=== PATIENT | male | born 1945 | race Caucasian/White ===

== ENCOUNTER 2020-06-14 12:23 | Outpatient (CLI) | payer MEDICARE, SELFPAY ==
--- NOTE | 2020-06-14 12:30 | XRR_ITS ---
PROCEDURE INFORMATION: Exam: XR Abdomen, 1 View Exam date and time: 06/14/2020 12:41 PM Age: 74 years old Clinical indication: Condition or disease; Kidney or ureter condition; Calculus (stone) in ureter; Prior surgery; Surgery type: Lung; Additional info: Ureteral stone TECHNIQUE: Imaging protocol: XR of the abdomen. Views: Frontal supine view of the abdomen. 1 View. COMPARISON: CT Abdomen/Pelvis Renal [id number] 08/11/2019 2:17 PM FINDINGS: Gastrointestinal tract: Prominent stool, suggesting constipation. Vasculature: Vascular and prostate calcifications in the pelvis. Bones/joints: Osteopenia and degenerative change. Other findings: 8 mm calcification overlying the inferior right renal fossa, suggesting urolithiasis. XR/XR KUB [id number] IMPRESSION: 8 mm calcification overlying the inferior right renal fossa, suggesting urolithiasis.
== END 2020-06-14 12:24 | disposition home or self-care (01) ==
LOC: RAD 12:28
PROVIDERS: PCP Physician Assistant Medical; Visit Provider Urology
DX: N20.1 Calculus of ureter (principal); N20.0 Calculus of kidney; R97.20 Elevated prostate specific antigen [PSA]
CPT/HCPCS: 74018; 81001; 84153

== ENCOUNTER → 2020-10-10 12:13 | Outpatient (BNVA) | payer MEDICARE, SELFPAY | PROVIDERS: PCP Physician Assistant Medical; Visit Provider Urology | DX: R97.20 Elevated prostate specific antigen [PSA] (principal) | CPT/HCPCS: 84153 ==

== ENCOUNTER → 2021-04-10 11:55 | Outpatient (BNVA) | payer MEDICARE, SELFPAY | PROVIDERS: PCP Physician Assistant Medical; Visit Provider Urology | DX: R97.20 Elevated prostate specific antigen [PSA] (principal) | CPT/HCPCS: 84153 ==

== ENCOUNTER → 2021-04-17 11:06 | Outpatient (BNVA) | payer MEDICARE, SELFPAY | PROVIDERS: PCP Physician Assistant Medical; Visit Provider Urology | DX: N40.1 Benign prostatic hyperplasia with lower urinary tract symptoms (principal) | CPT/HCPCS: 81003 ==

== ENCOUNTER → 2021-10-16 14:21 | Outpatient (BNVA) | payer MEDICARE, SELFPAY | PROVIDERS: PCP Physician Assistant Medical; Visit Provider Urology | DX: R97.20 Elevated prostate specific antigen [PSA] (principal) | CPT/HCPCS: 84153 ==

== ENCOUNTER → 2022-04-17 11:12 | Outpatient (BNVA) | payer MEDICARE, SELFPAY | PROVIDERS: PCP Physician Assistant Medical; Visit Provider Urology | DX: R97.20 Elevated prostate specific antigen [PSA] (principal) | CPT/HCPCS: 84153 ==

== ENCOUNTER → 2022-04-25 09:47 | Outpatient (BNVA) | payer MEDICARE, SELFPAY | PROVIDERS: PCP Physician Assistant Medical; Visit Provider Urology | DX: R97.20 Elevated prostate specific antigen [PSA] (principal); N40.1 Benign prostatic hyperplasia with lower urinary tract symptoms; N28.89 Other specified disorders of kidney and ureter; N20.0 Calculus of kidney | CPT/HCPCS: 81003; 99213 ==

== ENCOUNTER → 2022-08-20 09:05 | Outpatient (BNVA) | payer MEDICARE, SELFPAY | PROVIDERS: PCP Physician Assistant Medical; Visit Provider Urology | DX: N40.1 Benign prostatic hyperplasia with lower urinary tract symptoms (principal) | CPT/HCPCS: 84153 ==

== ENCOUNTER → 2022-08-27 12:43 | Outpatient (BNVA) | payer MEDICARE, SELFPAY | PROVIDERS: PCP Physician Assistant Medical; Visit Provider Urology | DX: N40.1 Benign prostatic hyperplasia with lower urinary tract symptoms (principal); R97.20 Elevated prostate specific antigen [PSA]; N28.89 Other specified disorders of kidney and ureter; N20.0 Calculus of kidney | CPT/HCPCS: 51798; 81003; 99213 ==

== ENCOUNTER → 2023-02-25 12:02 | Outpatient (BNVA) | payer MEDICARE, SELFPAY | PROVIDERS: PCP Physician Assistant Medical; Visit Provider Urology | DX: R97.20 Elevated prostate specific antigen [PSA] (principal) | CPT/HCPCS: 84153 ==

== ENCOUNTER → 2023-03-04 10:21 | Outpatient (BNVA) | payer MEDICARE, SELFPAY | PROVIDERS: PCP Physician Assistant Medical; Visit Provider Urology | DX: N40.1 Benign prostatic hyperplasia with lower urinary tract symptoms (principal); R97.20 Elevated prostate specific antigen [PSA] | CPT/HCPCS: 51798; 81003; 99213 ==

== ENCOUNTER 2023-11-22 17:08 | Inpatient (IN) | payer MEDICARE, SELFPAY ==
[2023-11-22 17:20] VITALS: BMI 21.4
[2023-11-22 17:27] VITALS: PULSE 70; PULSE 87
--- NOTE | 2023-11-22 17:27 | USCV_ITS ---
Jovani Zavaleta Age: 77 Gender: M : 1945 Exam Date: 11/22/2023 17:49 Ordering Phys: Jason Blanchard MD Technologist: Arnaldo Cazares Exam Location: [facility] [place] Indication: cva BP: 124 / 90 HR: 84 Rhythm: Sinus Technical Quality: Suboptimal MEASUREMENTS (Male / Female) Normal Values 2D ECHO LVOT Diameter 2.5 cm LV Ejection Fraction MOD 2C 71.3 % LV Ejection Fraction 2C AL 70.9 % LA Diameter 3.0 cm RA Systolic Volume 4C AL 26.6 ml RA Systolic Volume 4C MOD 25.8 ml Aorta at Sinotubular Diameter 2.2 cm IVC Diameter 1.4 cm M-MODE LA Ao Ratio MM 1.1 AV Cusp Separation MM 1.5 cm DOPPLER AV Peak Velocity 161.0 cm/s LVOT Peak Velocity 92.0 cm/s AV Area Cont Eq vti 2.9 cm squared AV Area Cont Eq pk 2.8 cm squared MV Peak Velocity 103.0 cm/s MV Area PHT 3.9 cm squared Mitral E to A Ratio 0.7 PV Peak Velocity 136.5 cm/s RV Ejection Time 0.3 s FINDINGS Left Ventricle Normal left ventricular size, systolic function and wall thickness, with no regional wall motion abnormalities. Grade I/IV diastolic dysfunction (abnormal relaxation filling pattern), normal to mildly elevated filling pressures. Left ventricular ejection fraction is estimated at 65 %. Right Ventricle Right Atrium The right atrium is normal in size. Left Atrium The left atrium is normal in size. Mitral Valve Structurally normal mitral valve without significant stenosis or prolapse. There is no mitral regurgitation. Aortic Valve Structurally normal aortic valve without significant sclerosis or stenosis. There is no aortic regurgitation. Tricuspid Valve Structurally normal tricuspid valve. No tricuspid valve regurgitation. Pulmonic Valve Pulmonic valve not well visualized. Pericardium Normal pericardium without effusion. Aorta Normal ascending aorta dimension. IVC The inferior vena cava appears normal. CONCLUSIONS Normal left ventricular size, systolic function and wall thickness, with no regional wall motion abnormalities. Grade I/IV diastolic dysfunction (abnormal relaxation filling pattern), normal to mildly elevated filling pressures. Left ventricular ejection fraction is estimated at 65 %. There are no prior echocardiogram studies to compare. Dr. Bello Altman MD (Electronically Signed) Final Date: 23 November 2023 10:20 S
[2023-11-22 17:29] VITALS: BP 160/84; PULSE 86; RESP 16; TEMP 37; O2SAT 95
--- NOTE | 2023-11-22 17:31 | P.HP_ITS ---
Providers/Chief Complaint Admitting Physician: Jason Blanchard MD Primary Care Provider: Romie Fleming Chief Complaint: Stroke History of Present Illness Jovani Zavaleta is a 77 year old male with a past medical history of Parkinson's disease, BPH, history of renal mass, history of left lower lobe lobectomy for fungal infection, who presents to [facility] due to left hand weakness and numbness. Currently patient is alert oriented x 3, follows all commands, his only complaint is weakness and numbness in his left hand, Clumsiness. Patient tells me that he lives at home with his , she has not been feeling well, so he woke up around 5 -6am, when she noticed he was weak in his left hand, no other focal weakness, he did take care of his , he went back to sleep, when he woke up at around 8 fine, he continued to have left hand weakness, he could not pull his pants up, due to left hand weakness, no other focal weakness no left lower extremity weakness, no facial droop, no slurring of his words, no visual deficits, no memory changes, he actually drove himself to [facility], where in the emergency room, stroke alert was called, he had a CT head which was normal limits CTA which was within normal limits was given loading dose of Plavix, aspirin, neurologist wanted patient to be transferred to tertiary level center for full stroke evaluation. Currently patient is alert oriented x 3, following all commands, no visual deficits, he has potentially a very slight left facial droop no facial numbness, does have left hand numbness and left hand weakness, no shoulder weakness, no left lower extremity weakness, no unsteadiness he tells me, he did have a prior TIA in 2009, as per ER physician patient was out of the window for tPA, and did not qualify for any endovascular procedure given his normal CT head and neck findings, currently his NIH stroke scale is 1-2 Review of Systems 2 Const: Denies: fever(s) Eyes: Denies: change in vision Card: Denies: chest pain Resp: Denies: dyspnea GI: Denies: abdominal pain : Denies: flank pain Musc: Denies: neck pain or back pain Neuro: Reports: numbness in extremities, weakness in extremities, sensory changes, lack of coordination and involuntary movements; Denies: headache(s), difficulty walking, frequent falls, dizziness, vertigo, confusion, Slurred speech present, difficulty communicating thoughts or seizure- like activity Medications/Allergies Home Medications Medication Instructions Recorded Confirmed Last Taken Type amantadine HCl 100 mg capsule 100 mg PO BID 06/14/20 03/04/23 Unknown History aspirin 81 mg tablet,delayed 81 mg PO DAILY 06/14/20 03/04/23 Unknown History release (Adult Aspirin Regimen) benazepril 10 mg tablet 10 mg PO DAILY 06/14/20 03/04/23 Unknown History pediatric multivitamin (Animal 1 tab PO DAILY 10/23/21 03/04/23 Unknown History Shape Vitamins chewable tablet) tamsulosin 0.4 mg capsule 0.4 mg PO BID #180 caps 04/25/22 03/04/23 Unknown Rx Allergies Allergy/AdvReac Type Severity Reaction Status Date / Time No Known Allergies Allergy Verified 03/04/23 10:24 PFSH Acute PFSH: Medical History (Updated 11/22/23 @ 17:36 by Jason Blanchard MD) Right ureteral calculus Status post extracorporeal shock wave therapy Family history of prostate cancer HTN (hypertension) Hx of cancer of lung Tremor of unknown origin Renal mass, right Urolithiasis Elevated PSA BPH loc w urin obs/LUTS Surgical History History of lobectomy of lung Family History Father , AT AGE 77 PROSTATE CANCER Cancer Mother , AT AGE 100 Hypertension Social History Smoking and tobacco/nicotine status: never used tobacco/nicotine Alcohol intake: never Adopted: No Caregiver/support person: No Lives independently: No Household members: spouse Marital status: Current occupational status: retired Physical Exam Const: COMMON NORMALS: no acute distress and patient oriented x3 HENMT: COMMON NORMALS: normocephalic HEAD & SCALP: normocephalic Eye: COMMON NORMALS: Equal, round and reactive pupils present and EOMs intact bilaterally Neck/C-Spine: COMMON NORMALS: no JVD Lymph: LYMPHATIC: no lymphadenopathy noted Resp: COMMON NORMALS: normal respiratory effort, No retractions, No use of accessory muscles and clear to auscultation bilaterally AUSCULTATION: clear to auscultation bilaterally Cardio: COMMON NORMALS: no JVD, regular rate, regular rhythm, S1 normal heart sound present and S2 normal heart sound present RATE: regular rate RHYTHM: regular rhythm HEART SOUNDS: S1 normal heart sound present and S2 normal heart sound present GI: COMMON NORMALS: Normal to inspection, nondistended, normoactive bowel sounds present, Soft to palpation and non-tender Extremity: COMMON NORMALS: no calf tenderness and no pedal edema Neuro: COMMON NORMALS: patient oriented x3, CN's II-XII intact bilaterally and moves all extremities OTHER: Left hand numbness, left hand weakness, left hand difficulty coordinating, clumsiness, slight left facial droop, no slurring of his words, no other focal weakness Psych: COMMON NORMALS: mental status grossly normal A&P Assessment and plan (1) Acute CVA (cerebrovascular accident): Plan Acute CVA -With left hand weakness, clumsiness, paresthesias, with a very slight left facial droop -I have his NIH stroke scale 1-2 -Out of tPA window -Does not qualify for endovascular procedure -CT head within normal limits -CTA head and neck was within normal limits Plan -Neurochecks, NIH stroke scale, aspiration precautions, bedside swallow eval -Continue aspirin 81 mg, Plavix 75 mg, statin -IV fluids -Allow for permissive hypertension -MRI of the brain -Cardiac echo -Telemetry monitoring -Serial troponins, serial EKGs, telemetry monitoring -Full code -Lovenox for DVT prophylaxis -Monitor patient telemetry monitoring strips shows possible V. tach, troponin at the facility was 22, will check magnesium levels, repeat troponin series, TSH, telemetry monitoring, patient denies any chest pain, no palpitations denied passing out Attestations Medical Necessity Statement*: Patient requires hospitalization, inpatient, greater than 2-midnights, for left hand weakness, clumsy left hand, difficulty coordinating concerns for acute CVA Diagnoses Acute CVA (cerebrovascular accident) I63.9
[2023-11-22] MEDS: sodium chloride 0.9% 1,000 ML 75 ML IV (18:16)
[2023-11-22] MEDS: enoxaparin 40 mg/0.4 mL Syringe SUBCUT (18:17)
[2023-11-22] MEDS: pantoprazole 40 mg SDV IVP (18:17)
[2023-11-22] MEDS: tamsulosin 0.4 mg Capsule 0.400000000000000022 MG PO (18:17)
[2023-11-22 19:42] VITALS: BP 142/75; PULSE 71; RESP 17; TEMP 36.9; O2SAT 96
[2023-11-22 19:45] LABS: Add Urine Microscopic? NO; Charge for UA Resulting for Rev
--- NOTE | 2023-11-22 19:49 | ECG_ITS ---
[facility] Test Date: 2023-11-22 Pat Name: Jovani Zavaleta Department: Room: 278 Gender: Male Transmitter Chief: : 1945 Requested By: Jason Blanchard Order Number: [id number] Josh MD: Bello Altman M.D. Measurements Intervals Riva Rate: 70 P: -15 TN: 148 QRS: 65 QRSD: 92 T: 3 QT: 356 QTc: 384 Interpretive Statements SINUS RHYTHM Compared to ECG 10/21/2018 10:36:07 No significant changes Electronically Signed On 11-23-2023 10:24:05 CDT by Bello Altman M.D. [id number]
[2023-11-22 19:57] LABS: Bilirubin Urine Neg (Negative); Blood Urine Neg (Negative); Glucose Urine UA Norm (Normal); Ketones Urine Negative (Negative); Leukocyte Esterase Urine Negative (Negative); Nitrate Urine Negative (Negative); Protein Urine Neg (Negative); Sulfosalicylic Acid Urine Negative (Negative); Urine Appearance Clear (CLEAR); Urine Color Yellow (Yellow); Urobilinogen Urine Norm (Negative); pH Urine 8 (5-7)
[2023-11-22 20:18] VITALS: O2SAT 95
[2023-11-22 20:33] LABS: INR 1.09 (0.8-1.2)
[2023-11-22 20:42] LABS: Troponin(5th) Baseline 25 ng/L (0-15)
[2023-11-22 20:54] LABS: Chol HDL Ratio 3.61 mg/dL (1.0-5.00); Cholesterol 177 mg/dL (0-200); HDL Cholesterol 49 mg/dL (60-100); LDL Cholesterol Calculated 113 mg/dL (50-129); LDL HDL Ratio 2.31 RATIO (0.00-3.22); Magnesium 2.1 mg/dL (1.7-2.3); NT Pro B Type Natriuretic Pept 114 pg/mL (0-450); Thyroid Stimulating Hormone 1.72 uIU/mL (0.27-4.20); Triglycerides 76 mg/dL (0-150)
[2023-11-22] MEDS: atorvastatin 40 mg Tablet PO (21:20)
[2023-11-22 21:37] LABS: Estmated Average Glucose 117; Hemoglobin A1C 5.7 % (4.0-6.0)
[2023-11-22 22:15] VITALS: PULSE 75
[2023-11-22 23:11] LABS: Troponin 5 2HR 21.48 ng/L (0-15)
[2023-11-22 23:15] LABS: Troponin 5 2HR Delta -3.52 ABS# (0-10)
[2023-11-23] VITALS (9 sets, daily range): BP systolic 116–148; BP diastolic 61–88; PULSE 62–84; RESP 16–18; TEMP 36.4–36.8; O2SAT 90–97; BMI 21.7
[2023-11-23 05:21] LABS: Basophils % 0.3 %; Eosinophils # 0.2 10^3/uL (0.0-0.8); Eosinophils % 2.5 %; Hematocrit 46.5 % (37-53); Lymphocytes # 2.6 10^3/uL (0.8-4.8); Lymphocytes % 35.9 %; Mean Corpuscular HGB Conc 32.3 g/dL (30-55); Mean Corpuscular Hemoglobin 30.8 pg (27-33); Mean Corpuscular Volume 95.5 fl (82-101); Mean Platelet Volume 10.3 fL (7.4-10.4); Monocytes # 0.6 10^3/uL (0.2-0.9); Monocytes % 8.5 %; Neutrophils % 52.1 %; Nucleated Red Blood Cells % 0 %; Platelet Count 295 10^3/cmm (157-399); Red Blood Count 4.87 10^6/uL (3.85-5.65); Red Cell Distribution Width 14.1 % (12.1-15.1); White Blood Count 7.28 10^3/uL (3.29-11.43)
[2023-11-23 05:43] LABS: Alanine Aminotransferase 14 U/L (0-41); Albumin Level 3.8 g/dL (3.5-5.2); Alkaline Phosphatase 74 U/L (40-130); Anion Gap 13.1 (5-19); Aspartate Amino Transferase 15 U/L (0-40); Blood Urea Nitrogen 23 mg/dL (8-23); Calcium 9.6 mg/dL (8.5-10.5); Carbon Dioxide 28 mmol/L (22-29); Chloride 102 mmol/L (98-107); Creatinine Clr Calc Pharmacy 54.1861; Globulin 2.3 g/dL (1.3-4.6); Glucose 86 mg/dL (65-115); Osmolality Calculated 289 mOsm/kg (285-295); Phosphorus 2.9 mg/dL (2.5-4.5); Potassium 5.1 mmol/L (3.5-5.1); Sodium 138 mmol/L (136-145); Total Bilirubin 0.5 mg/dL (0.15-1.2); Total Protein 6.1 g/dL (6.6-8.7)
[2023-11-23 05:51] LABS: Troponin 5 6HR 21.78 ng/L (0-15)
[2023-11-23 05:54] LABS: Troponin 5 6HR Delta -3.22 ng/L (0-12)
[2023-11-23] MEDS: tamsulosin 0.4 mg Capsule 0.400000000000000022 MG PO ×2 (09:13→17:44)
[2023-11-23] MEDS: sodium chloride 0.9% 1,000 ML 75 ML IV ×2 (09:13→21:17)
[2023-11-23] MEDS: aspirin 81 mg EC Tablet PO (09:13)
[2023-11-23] MEDS: clopidogrel 75 mg Tablet PO (09:13)
--- NOTE | 2023-11-23 12:35 | P.PN_ITS ---
Subjective 2 Subjective: Patient was seen this morning, continues to complain of a clumsy left hand, no facial droop no slurring of his words, no other focal weakness reported Vitals/I&O/Wt Last Vital Signs Temp 97.7 F 11/23/23 10:33 Pulse 70 11/23/23 10:33 Resp 18 11/23/23 10:33 BP 146/81 11/23/23 10:33 Pulse Ox 96 11/23/23 10:33 O2 Del Method Room Air 11/23/23 10:33 11/22/23 11/23/23 11/23/23 21:59 06:59 14:59 Intake Total 1840 / 1840 Output Total 600 / 600 Balance 1240 / 1240 Weight last 48 hrs Weight 67.721 kg Weight 66.996 kg Physical Exam 2 Const: COMMON NORMALS: no acute distress and patient oriented x3 Resp: COMMON NORMALS: normal respiratory effort, No retractions, No use of accessory muscles and clear to auscultation bilaterally AUSCULTATION: clear to auscultation bilaterally Cardio: COMMON NORMALS: regular rate, regular rhythm, S1 normal heart sound present and S2 normal heart sound present RATE: regular rate RHYTHM: r egular rhythm HEART SOUNDS: S1 normal heart sound present and S2 normal heart sound present GI: COMMON NORMALS: Normal to inspection, nondistended, normoactive bowel sounds present and non-tender Extremity: COMMON NORMALS: no pedal edema Neuro: COMMON NORMALS: patient oriented x3, CN's II-XII intact bilaterally and moves all extremities OTHER: Left hand numbness, weakness, trouble coordinating, clumsiness Psych: COMMON NORMALS: mental status grossly normal Data 11/23/23 03:30 11/23/23 03:30 A&P Assessment and plan (1) Acute CVA (cerebrovascular accident): Plan Acute CVA -With left hand weakness, clumsiness, paresthesias, with a very slight left facial droop -I have his NIH stroke scale 1-2 -Out of tPA window -Does not qualify for endovascular procedure -CT head within normal limits -CTA head and neck was within normal limits Plan -Neurochecks, NIH stroke scale, aspiration precautions, bedside swallow eval -Continue aspirin 81 mg, Plavix 75 mg, statin -IV fluids -Allow for permissive hypertension -MRI of the brain ordered for tomorrow -Cardiac echo -Telemetry monitoring -Serial troponins, serial EKGs, telemetry monitoring -Full code -Lovenox for DVT prophylaxis Plan for today PT OT, speech therapy eval, monitoring blood pressure, patient does complain of left upper quadrant pain ultrasound abdomen Attestations 2 Medical Necessity Statement*: Patient requires hospitalization for acute CVA, inpatient, greater than 2 midnights Diagnoses Acute CVA (cerebrovascular accident) I63.9
--- NOTE | 2023-11-23 12:36 | USR_ITS ---
PROCEDURE INFORMATION: Exam: US Abdomen; Limited Exam date and time: 11/23/2023 2:48 PM Age: 77 years old Clinical indication: Abdominal pain; Flank; Left upper quadrant (luq); Additional info: Luq pain TECHNIQUE: Imaging protocol: Real time ultrasound of the abdomen with image documentation. Limited exam focused on the region of clinical interest. COMPARISON: CT kidney stone [id number] 08/11/2019 2:17 PM FINDINGS: Ultrasound scan of left kidney and spleen performed. No hydronephrosis. Renal cortical thickness is normal. There is minimal increased echogenicity suggesting medical renal disease. Small focal calcification in lower pole lateral cortex of the kidney noted. Spleen is normal size. US/US abdomen limited 11030 IMPRESSION: No acute findings. 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
[2023-11-23] MEDS: pantoprazole 40 mg SDV IVP (17:44)
[2023-11-23] MEDS: enoxaparin 40 mg/0.4 mL Syringe SUBCUT (17:45)
[2023-11-23] MEDS: atorvastatin 40 mg Tablet PO (20:43)
[2023-11-24] VITALS: BP 110/65; PULSE 68; RESP 16; TEMP 36.6; O2SAT 98
[2023-11-24 03:51] VITALS: BP 157/65; PULSE 67; RESP 18; TEMP 36.2; O2SAT 95
[2023-11-24 04:56] VITALS: PULSE 58
[2023-11-24 05:43] LABS: Basophils % 0.5 %; Eosinophils # 0.2 10^3/uL (0.0-0.8); Eosinophils % 2.7 %; Hematocrit 44.9 % (37-53); Lymphocytes # 2.5 10^3/uL (0.8-4.8); Lymphocytes % 37.4 %; Mean Corpuscular HGB Conc 32.3 g/dL (30-55); Mean Corpuscular Hemoglobin 31.2 pg (27-33); Mean Corpuscular Volume 96.6 fl (82-101); Mean Platelet Volume 9.9 fL (7.4-10.4); Monocytes # 0.6 10^3/uL (0.2-0.9); Monocytes % 8.5 %; Neutrophils # 3.28 10^3/uL (1.8-7.7); Neutrophils % 50.1 %; Nucleated Red Blood Cells % 0 %; Platelet Count 281 10^3/cmm (157-399); Red Blood Count 4.65 10^6/uL (3.85-5.65); White Blood Count 6.55 10^3/uL (3.29-11.43)
--- NOTE | 2023-11-24 06:00 | MR_ITS ---
WS: [id number] MRI HEAD WITHOUT CONTRAST TECHNIQUE: Sagittal T1, T2 axial, T2 axial FLAIR, axial and coronal T1 images, axial susceptibility w eighted imaging, axial diffusion weighted images, and coronal T2 images were obtained. CLINICAL INFORMATION: cva COMPARISON: None. FINDINGS: Small focus of restricted diffusion in the RIGHT posterior marrero radiata at the frontoparietal junct ion measuring 1.0 cm compatible with acute ischemia. No significant mass effect or midline shift. Add itional small area of restricted diffusion involving the RIGHT posterior frontal lobe laterally near the vertex consistent with a small region of acute cortical ischemia. Moderate small vessel changes. Moderate parenchymal volume loss. Multiple tiny chronic lacunar infarc ts in the cerebellum bilaterally. Normal vascular flow voids at the skull base. No extra-axial fluid collections. Mild mucosal thickening in the paranasal sinuses with partial opacification of the ethmo id air cells. Mastoid air cells are well aerated. Normal posterior nasopharynx and parapharyngeal fat. Small vessel changes in the floridalma. Tiny chronic l acunar infarcts in the LEFT greater than RIGHT periventricular white matter. Tiny chronic lacunar inf arct RIGHT thalamus. Normal optic chiasm and pituitary infundibulum. Moderate symmetric atrophy temporal lobes and hippoca mpal formations IMPRESSION: 1. 1.0 cm focus of acute ischemia in the RIGHT posterior periventricular white matter near the front oparietal junction. 2. Additional small area of acute ischemia in the RIGHT posterior frontal cortex laterally. 3. No significant mass effect or midline shift. 4. Moderate small vessel changes with moderate parenchymal volume loss. 5. Several tiny chronic lacunar infarcts in the cerebellum bilaterally. 6. Mild mucosal thickening in the ethmoid air cells. Notified Jason Blanchard MD at 11/24/2023 2:52 PM.
[2023-11-24 06:10] LABS: Alanine Aminotransferase 14 U/L (0-41); Albumin Level 3.7 g/dL (3.5-5.2); Alkaline Phosphatase 68 U/L (40-130); Aspartate Amino Transferase 16 U/L (0-40); Blood Urea Nitrogen 18 mg/dL (8-23); Calcium 9.4 mg/dL (8.5-10.5); Carbon Dioxide 22 mmol/L (22-29); Creatinine Clr Calc Pharmacy 76.0094; Globulin 2.6 g/dL (1.3-4.6); Glucose 92 mg/dL (65-115); Magnesium 1.9 mg/dL (1.7-2.3); Phosphorus 2.4 mg/dL (2.5-4.5); Total Bilirubin 0.5 mg/dL (0.15-1.2); Total Protein 6.3 g/dL (6.6-8.7)
[2023-11-24 06:56] LABS: Anion Gap 13.6 (5-19); Chloride 108 mmol/L (98-107); Osmolality Calculated 290 mOsm/kg (285-295); Potassium 4.6 mmol/L (3.5-5.1); Sodium 139 mmol/L (136-145)
[2023-11-24 08:00] VITALS: BP 143/77; PULSE 89; RESP 18; TEMP 36.6; O2SAT 95
[2023-11-24] MEDS: tamsulosin 0.4 mg Capsule 0.400000000000000022 MG PO (09:03)
[2023-11-24] MEDS: aspirin 81 mg EC Tablet PO (09:03)
[2023-11-24] MEDS: clopidogrel 75 mg Tablet PO (09:03)
--- NOTE | 2023-11-24 09:45 | CT_ITS ---
WS: [id number] CT ABDOMEN AND PELVIS NONCONTRAST HISTORY: LUQ abdominal pain TECHNIQUE: Imaging performed through the abdomen and pelvis. Coronal and sagittal reformats are submi tted. All CT scans at [facility] use at least one of these dose optimization techniques: auto mated exposure control; mA and/or kV adjustment per patient size (includes targeted exams where dose is matched to clinical indication); or iterative reconstruction. DLP: 1044.32 mGy.cm COMPARISON: 08/11/2019 Lower thorax: Lung bases are clear. Visualized heart is normal. No hiatal hernia. Liver: Normal size liver. Reidentified are coarse calcifications in the LEFT lobe of the liver. Liver otherwise is negative on an unenhanced exam. Gallbladder: Normal gallbladder. No pericholecystic fluid or cholelithiasis. No gallbladder wall thic kening. Pancreas: Normal size and attenuation. Normal pancreatic duct. No pancreatitis or mass. Spleen: Normal. Adrenal glands: Mild bilateral adrenal nodules are stable. Right kidney: Large nonobstructing calcification central kidney measures 10 mm. Left kidney: Normal size kidney with no mass or hydronephrosis. Aorta: Mild atherosclerosis abdominal aorta with no aneurysm. No free fluid, intraperitoneal air or significant lymphadenopathy. GI tract: Normal appearance of the stomach. No small bowel obstruction. Normal appendix. Moderate div erticular burden in the descending and sigmoid colon. No evidence for acute diverticulitis. Abdominal wall: Small umbilical hernia contains fat only. Pelvis: Well-distended urinary bladder. No free fluid. Prostate gland is enlarged encroaching into th e bladder. Asymmetric calcifications in the prostate gland. Prostate extends over a length of 5.9 x 6 .5 cm. Osseous structures: Marked increase in the lumbar lordosis. IMPRESSION: 1. Moderate burden distal colon diverticulosis without acute diverticulitis. 2. Mild constipation. 3. Markedly enlarged heterogeneous prostate gland. 4. Negative gallbladder. 5. Long-term stability coarse calcifications LEFT lobe of the liver.
--- NOTE | 2023-11-24 09:59 | PC.CHAP ---
Pastoral Care Encounter/Spiritual Assessment Type of Contact [] Declined gas systems worker visit [] Patient/Family/Request visit [] Outpatient visit [] Follow-up visit [] Physician referral [] Code/Alert [x] Routine visit [] Staff referral [] Actively dying [] Patient sleeping [] Family support [] [] Out of room [] Palliative care [] [] Receiving care in room [] Pre-surgical visit [] Trauma [] Long length of stay [] ICU visit [] Other: Relational/Emotional Strength [] Patient feels connected with others/family/visitors/staff [] Distress [] Loneliness/isolation [] Abandonment Spirituality of Patient [x] Person of Aria [x] Attends Yarsani of their Aria [x] Believes in Prayer [] Reads Bible or Mu-Ism materials [] There are Spiritual issues to be addressed Car Storer Interventions [x] Prayer [x] Active listening [] Non-anxious presence [] Spiritual/emotional support [] Crisis/trauma care [] Spiritual counseling [] Bereavement support [] Provided bereavement packet [] Provided Bible/devotional materials [] Provided toy/stuffed animal, coloring book to patient or family member [] Provided Communion [] Anointing/Otto [] Salvation [x] Completed spiritual assessment [] Other: Impact on Illness or Injury [] Angry [] Fearful [] Anxious [] Often cries [] Exhaustion [] Unable to work [] Unable to attend jehovah's witness [] Unable to walk/stand [] Unable to read [] Unable to drive [] Unable to eat/drink [] Unable to sleep [] Unable to be with family [] Patient intubated [] Other: Summary Time spent with patient 10 min
--- NOTE | 2023-11-24 10:23 | PM.DCS ---
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 Currently patient is alert oriented x 3, follows all commands, his only complaint is weakness and numbness in his left hand, Clumsiness. Patient tells me that he lives at home with his , she has not been feeling well, so he woke up around 5 -6am, when she noticed he was weak in his left hand, no other focal weakness, he did take care of his , he went back to sleep, when he woke up at around 8 fine, he continued to have left hand weakness, he could not pull his pants up, due to left hand weakness, no other focal weakness no left lower extremity weakness, no facial droop, no slurring of his words, no visual deficits, no memory changes, he actually drove himself to [facility], where in the emergency room, stroke alert was called, he had a CT head which was normal limits CTA which was within normal limits was given loading dose of Plavix, aspirin, neurologist wanted patient to be transferred to tertiary level center for full stroke evaluation. Currently patient is alert oriented x 3, following all commands, no visual deficits, he has potentially a very slight left facial droop no facial numbness, does have left hand numbness and left hand weakness, no shoulder weakness, no left lower extremity weakness, no unsteadiness he tells me, he did have a prior TIA in 2009, as per ER physician patient was out of the window for tPA, and did not qualify for any endovascular procedure given his normal CT head and neck findings, currently his NIH stroke scale is 1-2 Patient presented to [facility] as a transfer from [facility] for acute CVA with left hand weakness, clumsiness, paresthesias, out of tPA window, does not qualify for endovascular procedure CT head within normal limits CTA head and neck within normal limits, was managed on aspirin, Plavix, IV fluids allowed for permissive hypertension, cardiac echo within normal limits, MRI of the brain ordered 1. 1.0 cm focus of acute ischemia in the RIGHT posterior periventricular white matter near the frontoparietal junction. 2. Additional small area of acute ischemia in the RIGHT posterior frontal cortex laterally. 3. No significant mass effect or midline shift. 4. Moderate small vessel changes with moderate parenchymal volume loss. 5. Several tiny chronic lacunar infarcts in the cerebellum bilaterally. 6. Mild mucosal thickening in the ethmoid air cells. 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 Thereafter continue aspirin, statin and follow-up with neurology, ? If patient were to have any recurrent strokelike symptoms to call 911 Physical Exam Const: COMMON NORMALS: no acute distress and patient oriented x3 Resp: COMMON NORMALS: normal respiratory effort, No retractions, No use of accessory muscles and clear to auscultation bilaterally AUSCULTATION: clear to auscultation bilaterally Cardio: COMMON NORMALS: regular rate, regular rhythm, S1 normal heart sound present and S2 normal heart sound present RATE: regular rate RHYTHM: regular rhythm HEART SOUNDS: S1 normal heart sound present and S2 normal heart sound present GI: COMMON NORMALS: Normal to inspection, nondistended, normoactive bowel sounds present and non-tender Extremity: COMMON NORMALS: no pedal edema Neuro: COMMON NORMALS: patient oriented x3, CN's II-XII intact bilaterally, moves all extremities and no sensory deficits noted OTHER: On examination patient continues to have clumsiness of the left hand but strength has improved, with numbness, difficulty coordinating, has good upper strength bilaterally bilateral shoulders, bilateral forearms, bilateral biceps, bilateral lower extremities equal strength bilaterally no other focal neurologic deficits no facial droop no slurring of his words, does have a parkinsonian tremor Psych: COMMON NORMALS: mental status grossly normal Discharge Data Studies Completed and Pending Completed Studies During Hospitalization Category Date Time Status CV. echo complete* [id number] Routine Ultrasound 11/22/23 17:27 Completed US abdomen limited [id number] Routine Ultrasound 11/23/23 12:36 Completed Pending at discharge Category Date Time Status CT abdomen pelvis wo con [id number] Routine Cat Scan 11/24/23 09:45 Ordered Complete Blood Count w/Auto AM LABS Lab 11/25/23 04:00 Ordered Comprehensive Metabolic Panel AM LABS Lab 11/25/23 04:00 Ordered Magnesium AM LABS Lab 11/25/23 04:00 Ordered Phosphorus AM LABS Lab 11/25/23 04:00 Ordered MR head wo con* [id number] Routine MRI 11/24/23 06:00 Ordered Radiology Impressions Abdomen Ultrasound 11/23/23 12:36 IMPRESSION: No acute findings. 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 Laboratory Results WBC 6.55 10^3/uL (3.29-11.43) 11/24/23 05:27 RBC 4.65 10^6/uL (3.85-5.65) 11/24/23 05:27 Hgb 14.50 g/dL (11.27-16.99) 11/24/23 05:27 Hct 44.9 % (37-53) 11/24/23 05:27 MCV 96.6 fl (82-101) 11/24/23 05:27 MCH 31.2 pg (27-33) 11/24/23 05:27 MCHC 32.3 g/dL (30-55) 11/24/23 05:27 RDW 14.0 % (12.1-15.1) 11/24/23 05:27 Plt Count 281 10^3/cmm (157-399) 11/24/23 05:27 MPV 9.9 fL (7.4-10.4) 11/24/23 05:27 Neut % (Auto) 50.1 % 11/24/23 05:27 Lymph % (Auto) 37.4 % 11/24/23 05:27 [place] % (Auto) 8.5 % 11/24/23 05:27 Eos % (Auto) 2.7 % 11/24/23 05:27 Baso % (Auto) 0.5 % 11/24/23 05:27 Neut # (Auto) 3.28 10^3/uL (1.8-7.7) 11/24/23 05:27 Lymph # (Auto) 2.5 10^3/uL (0.8-4.8) 11/24/23 05:27 [place] # (Auto) 0.6 10^3/uL (0.2-0.9) 11/24/23 05:27 Eos # (Auto) 0.2 10^3/uL (0.0-0.8) 11/24/23 05:27 Baso # (Auto) 0.0 10^3/uL (0.0-0.1) 11/24/23 05:27 Nucleated RBC % (auto) 0 % 11/24/23 05:27 Nucleated RBCs # 0.0 /100WBC 11/24/23 05:27 PT 14.40 SECONDS (12.1-14.9) 11/22/23 20:00 INR 1.09 (0.8-1.2) 11/22/23 20:00 Sodium 139 mmol/L (136-145) 11/24/23 05:27 Potassium 4.6 mmol/L (3.5-5.1) 11/24/23 05:27 Chloride 108 mmol/L (98-107) H 11/24/23 05:27 Carbon Dioxide 22 mmol/L (22-29) 11/24/23 05:27 Anion Gap 13.6 (5-19) 11/24/23 05:27 BUN 18 mg/dL (8-23) 11/24/23 05:27 Creatinine 0.8 mg/dL (0.7-1.2) 11/24/23 05:27 GFR Calculation Not Reportable 11/24/23 05:27 Glucose 92 mg/dL (65-115) 11/24/23 05:27 Estimat Average Glucose 117 11/22/23 20:00 Hemoglobin A1c 5.7 % (4.0-6.0) 11/22/23 20:00 Calculated Osmolality 290 mOsm/kg (285-295) 11/24/23 05:27 Calcium 9.4 mg/dL (8.5-10.5) 11/24/23 05:27 Phosphorus 2.4 mg/dL (2.5-4.5) L 11/24/23 05:27 Magnesium 1.9 mg/dL (1.7-2.3) 11/24/23 05:27 Total Bilirubin 0.5 mg/dL (0.15-1.2) 11/24/23 05:27 AST 16 U/L (0-40) 11/24/23 05:27 ALT 14 U/L (0-41) 11/24/23 05:27 Alkaline Phosphatase 68 U/L (40-130) 11/24/23 05:27 Troponin T Baseline 25 ng/L (0-15) H 11/22/23 20:00 Troponin T 120 Minute 21.48 ng/L (0-15) H 11/22/23 22:20 Delta Troponin T -3.52 ABS# (0-10) L 11/22/23 22:20 Troponin T Hi Sens 6Hr 21.78 ng/L (0-15) H 11/22/23 02:30 Troponin T Hi Sens 6Hr Delta -3.22 ng/L (0-12) L 11/22/23 02:30 NT-Pro-B Natriuret Pep 114 pg/mL (0-450) 11/22/23 20:00 Total Protein 6.3 g/dL (6.6-8.7) L 11/24/23 05:27 Albumin 3.7 g/dL (3.5-5.2) 11/24/23 05:27 Globulin 2.6 g/dL (1.3-4.6) 11/24/23 05:27 Triglycerides 76 mg/dL (0-150) 11/22/23 20:00 Cholesterol 177 mg/dL (0-200) 11/22/23 20:00 LDL Cholesterol, Calc 113 mg/dL (50-129) 11/22/23 20:00 HDL Cholesterol 49 mg/dL (60-100) L 11/22/23 20:00 LDL/HDL Ratio 2.31 RATIO (0.00-3.22) 11/22/23 20:00 Cholesterol/HDL Ratio 3.61 mg/dL (1.0-5.00) 11/22/23 20:00 TSH 1.72 uIU/mL (0.27-4.20) 11/22/23 20:00 Urine Color Yellow (Yellow) 11/22/23 18:59 Urine Appearance Clear (CLEAR) 11/22/23 18:59 Urine pH 8 (5-7) H 11/22/23 18:59 Ur Specific Norris 1.010 (1.005-1.030) 11/22/23 18:59 Urine Protein Neg (Negative) 11/22/23 18:59 Urine Glucose (UA) Norm (Normal) 11/22/23 18:59 Urine Ketones Negative (Negative) 11/22/23 18:59 Urine Blood Neg (Negative) 11/22/23 18:59 Urine Nitrate Negative (Negative) 11/22/23 18:59 Urine Bilirubin Neg (Negative) 11/22/23 18:59 Prot Sulfosalicylic Acd Negative (Negative) 11/22/23 18:59 Urine Urobilinogen Norm mg/dL (Negative) 11/22/23 18:59 Ur Leukocyte Esterase Negative (Negative) 11/22/23 18:59 Vitals Last Vital Signs Temp 97.8 F 11/24/23 08:00 Pulse 89 11/24/23 08:00 Resp 18 11/24/23 08:00 BP 143/77 11/24/23 08:00 Pulse Ox 95 11/24/23 08:00 O2 Del Method Room Air 11/24/23 08:00 Discharge Plan Discharge Patient Disposition: Home Condition: Stable Prescriptions: New atorvastatin 40 mg Tablet 40 mg PO BEDTIME 30 Days Qty: 30 0RF clopidogrel 75 mg Tablet 75 mg PO DAILY 19 Days Qty: 19 0RF Miralax 17 gram powder in packet 17 g PO DAILY PRN (Reason: constipation) 30 Days Qty: 30 0RF Continued benazepril 10 mg tablet 10 mg PO DAILY amantadine HCl 100 mg capsule 100 mg PO DAILY aspirin [Adult Aspirin Regimen] 81 mg tablet,delayed release (DR/EC) 81 mg PO DAILY Flomax 0.4 mg capsule 1 mg PO DAILY Men's Daily Gummies 200 mcg Tablet,Chewable 1 tab PO DAILY Discharge Orders: Discharge Order (Routine); Ordered 11/24/23 Ordered By: Jason Blanchard Other Ambulatory Orders: Physical Therapy Eval and Treat Outpatient (Order) Timeframe: 3 Days Facility: [facility] - Location: Physical Therapy [place] Ordered By: Jason Blanchard Referrals: Vineet Lopez MD [Physician] - 2 weeks (cva We have notified your physician's clinic of the need for a follow-up appointment to be scheduled. If you have not heard from them within the next 2 business days, please call them directly. ) Romie Fleming [Primary Care Provider] - 11/25/23 2:20 pm Carlos Kirk MD [Referring] - 1 month (PROSTATE ENALRGEMENT) Discharge Diet: Cardiac Discharge Activity: Resume usual activity Patient Instructions: Atorvastatin (By mouth), Clopidogrel (By mouth), Ischemic Stroke (DC), Opioid Safety, Stroke Stoplight Activity Restrictions/Additional Instructions: - For acute CVA, discharging on aspirin, Plavix, statin, ? After 19 days please stop taking Plavix, ? Please monitor for bloody or black stools if so go to the emergency room ? If you have any recurrent strokelike symptoms please call 911 ? See your primary care provider this week for recheck blood pressure -Your CT scan shows significant constipation, I discharged you with MiraLAX to be used once daily until you have regular soft bowel movement, then use it as needed, ? You also have an enlarged prostate and will have you follow-up with urology Discharge Attestations Time Spent in Discharge Care*: greater than 30 min Quality Metrics Clinical Quality Measures [ Cerebrovascular Accident { Contraindication to Antithrombotic: None; antithrombotic prescribed; Contraindication to Anticoagulation: Overlap treatment not indicated; Contraindication to Statin: None; Statin prescribed;}] Coding Level of Care Code 73802 Total time (in minutes) for Discharge: 45 Diagnoses Acute CVA (cerebrovascular accident) I63.9
[2023-11-24] MEDS: sodium chloride 0.9% 1,000 ML 75 ML IV (10:27)
[2023-11-24 12:00] VITALS: BP 152/79; PULSE 90; RESP 15; TEMP 36; O2SAT 95
[2023-11-24 17:29] VITALS: BP 152/79; PULSE 90; RESP 15; TEMP 36; O2SAT 95
== END 2023-11-24 17:25 | disposition home or self-care (01) | DRG 65 ==
PROVIDERS: Admitting Provider Family Medicine; PCP Physician Assistant Medical; Visit Provider Family Medicine
DX: I63.9 Cerebral infarction, unspecified (principal); I47.20 Ventricular tachycardia, unspecified; R20.2 Paresthesia of skin; G83.24 Monoplegia of upper limb affecting left nondominant side; R29.810 Facial weakness; G20.A1 Parkinson's disease without dyskinesia, without mention of fluctuations; N40.1 Benign prostatic hyperplasia with lower urinary tract symptoms; I10 Essential (primary) hypertension; Z79.82 Long term (current) use of aspirin; Z90.2 Acquired absence of lung [part of]; Z86.73 Personal history of transient ischemic attack (TIA), and cerebral infarction without residual deficits
CPT/HCPCS: 36415; 70551; 74176; 76705; 80053; 80061; 81003; 83036; 83735; 83880; 84100; 84443; 84484; 85025; 85610; 92523; 92610; 93005; 93306; 94664; 96372; 97110; 97161; C9113; J1650; J7030

== ENCOUNTER → 2023-12-03 09:42 | Outpatient (BNVA) | payer MEDICARE, SELFPAY | PROVIDERS: Visit Provider Psychiatry & Neurology Neurology | DX: I69.334 Monoplegia of upper limb following cerebral infarction affecting left non-dominant side (principal); I10 Essential (primary) hypertension | CPT/HCPCS: 99203 ==